=== PATIENT | male | born 1990 | race African-American/Black ===

== ENCOUNTER → 2020-10-26 | Outpatient (CLI) | payer OTHER ==
[~2020-10-26] MED LIST: IOHEXOL 300 MG/ML 75 ML VIAL. IV ONE
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
== END ==
LOC: CT 08:07
PROVIDERS: ATTEND Family Medicine
DX: K45.8 Other specified abdominal hernia without obstruction or gangrene (principal); R91.8 Other nonspecific abnormal finding of lung field; K43.9 Ventral hernia without obstruction or gangrene
CPT/HCPCS: 74177; Q9967